=== PATIENT | female | born 1975 | race Caucasian/White ===

== ENCOUNTER 2016-12-09 07:48 | Emergency (ER) | payer OTHER ==
[~2016-12-09] VITALS: Ht 167.6 cm; Wt 62.0 kg
[2016-12-09] MEDS ORDERED: SODIUM CHLORIDE 0.9% 1,000 ML IV ONE (08:50)
[2016-12-09] MEDS ORDERED: KETOROLAC 30MG/ML VIAL IV STA (08:50)
[2016-12-09 09:39] LABS: HEMATOCRIT. 38.3 % (36.0-48.0); MEAN CORPUSCULAR VOLUME 91.1 fL (81.0-99.0); MEAN PLATELET VOLUME 7.9 fl (7.4-10.4); PLATELET 190 x1000/uL (130-400); RED CELL DISTRIBUTION WIDTH 13.9 % (11.6-14.6)
[2016-12-09 09:42] LABS: GLUCOSE URINE NEGATIVE (NEGATIVE); KETONES URINE TRACE (NEGATIVE); LEUKOCYTE ESTERASE URINE 3+ (NEGATIVE); NITRITE URINE NEGATIVE (NEGATIVE); OCCULT BLOOD URINE TRACE (NEGATIVE); PROTEIN URINE 1+ (NEGATIVE); SPECIFIC GRAVITY URINE 1.018 (1.005-1.030); UROBILINOGEN URINE 0.2 E.U./dL (0.2-1.0)
[2016-12-09 09:46] LABS: CLARITY URINE CLOUDY (CLEAR); COLOR URINE YELLOW (YELLOW)
[2016-12-09 09:47] LABS: CHLORIDE 105 mEq/L (98-107); INR 1.1; PROTHROMBIN TIME 11.2 sec (9.4-11.6)
[2016-12-09 09:57] LABS: CARBON DIOXIDE 26 mEq/L (21-32); TROPONIN I < 0.02 ng/mL (0.00-0.04)
[2016-12-09 10:13] LABS: PLATELET ESTIMATE NORMAL
[2016-12-09] MEDS ORDERED: IOHEXOL-300 100 ML BOTTLE ONE (10:41)
[2016-12-09 11:01] VITALS: BP 122/56
== END 2016-12-09 11:10 | disposition home or self-care (01) ==
LOC: ER 10:38
DX: N10 Acute pyelonephritis (principal); R03.0 Elevated blood-pressure reading, without diagnosis of hypertension; E03.9 Hypothyroidism, unspecified
CPT/HCPCS: 36415; 71010; 74177; 80053; 81001; 81025; 83690; 83880; 84484; 85025; 85610; 93005; 96361; 96374; 99285; J1885; Q9967; Z7610; J7030